=== PATIENT | female | born 1990 | race Caucasian/White ===

== ENCOUNTER → 2019-05-19 15:01 | Outpatient (CLI) | payer OTHER, MEDICAID, SELFPAY | DX: Z23 Encounter for immunization (principal) | CPT/HCPCS: 90471; 90686 ==

== ENCOUNTER 2019-12-12 22:46 | Emergency (ER) | payer OTHER, SELFPAY ==
--- NOTE | 2019-12-12 22:54 | DI.RAD.S_ITS ---
PROCEDURE: XR WRIST LT MIN 3V INDICATIONS: pain, unable to bend TECHNIQUE: 4 views of the wrist were acquired. COMPARISON: None. FINDINGS: Bones: No fractures or dislocations. No suspicious bony lesions. Scaphoid view: Scaphoid appears intact. Scapholunate interval is maintained. Soft tissues: No suspicious soft tissue calcifications. IMPRESSION: Left wrist without acute radiographic abnormalities. If there is persistent clinical concern for occult fracture given adequate mechanism of injury, consider repeat imaging in 10-14 days. Findings are concordant with emergency physician's preliminary interpretation. Dictated by: Raphael Fierro M.D. on 12/13/2019 at 7:34 Approved by: Raphael Fierro M.D. on 12/13/2019 at 7:36
[2019-12-12 22:55] VITALS: BP 148/82; PULSE 91; RESP 15; TEMP 36.4; O2SAT 100; BMI 40.3
--- NOTE | 2019-12-12 22:56 | ED.GENADULT ---
HPI - General Adult General Chief complaint: Extremity Injury, Upper Stated complaint: L wrist pain worsening while working, can't bend Time Seen by Provider: 12/12/19 22:50 Source: patient Mode of arrival: Ambulatory Limitations: no limitations History of Present Illness HPI narrative: 29-year-old female. Right-hand dominant here for evaluation of left wrist pain. 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 She states that today she was pulling some trash while she was at work and had a fairly sudden onset of left-sided wrist pain. Did happened just prior to arrival. Is on the back of her wrist. Is a sharp sensation radiating down to her wrist. Has not done anything for the symptoms prior to arrival. No prior injury. No pain in the elbow. No plain on the palmar side of the wrist. Related Data Allergies Allergy/AdvReac Type Severity Reaction Status Date / Time SULFA Allergy Unknown RASH Uncoded 12/01/17 12:22 Review of Systems Constitutional Constitutional: Denies fever(s) Musculoskeletal Musculoskeletal: Reports tingling (Down into fingers) Comments: Left wrist pain Integumentary/Breasts Skin/Breast: Denies lesions and Denies rash Neurologic Neurologic: Reports tingling (Down into fingers) Hematologic/Lymphatic Hematologic/Lymphatic: Denies easy bleeding and Denies easy bruising Patient History Medical History Healthy adult (Acute) Social History lives independently: Yes Smoking Status: Never smoker Exam Initial Vital Signs Initial Vital Signs: Vital Signs Temperature 97.6 F 12/12/19 22:55 Pulse Rate 91 H 12/12/19 22:55 Respiratory Rate 15 12/12/19 22:55 Blood Pressure 148/82 H 12/12/19 22:55 Pulse Oximetry 100 12/12/19 22:55 Const General: cooperative, healthy appearing and comfortable Cardio Pulses: radial pulses present on the left Skin Lesions: no lesions Rashes: no rashes Neuro General: alert and awake Cognition: normal cognition Speech: speech normal Sensory Exam: no sensory deficits noted Extrem Other: Tenderness to palpation on the dorsum of the left wrist. No volar tenderness. No snuffbox tenderness. Difficulty with extending the wrist. Left elbow unremarkable. Can pronate and supinate without problems. Psych Appearance: grossly normal and well kempt Procedures Orthopedic Splinting/Casting Injury #1: Side: left Upper Extremity Injury Location: wrist Upper Extremity Immobilizer: wrist splint Post splinting neuro exam: no change Post splinting vascular exam: no change Placed by: Nursing Course Orders Ordered: ED Orders 12/12/19 22:54 XR wrist LT min 3V Stat Vital Signs Vital signs: Vital Signs - 8 hr 12/12/19 22:55 Temperature 97.6 F Pulse Rate 91 H Respiratory Rate 15 Blood Pressure 148/82 H Pulse Oximetry 100 Medical Decision Making Imaging Data Extremity x-ray #1: Attestation: I personally reviewed and interpreted this imaging study as follows: My Impression: No fractures or dislocations MDM Narrative Medical decision making narrative: Neurovascular intact, no fractures or dislocations on x-rays. Feel this is most likely musculoskeletal or ligamentous. Placed in a removable wrist splint for comfort. Can use Tylenol and/or ibuprofen. Was given return precautions. Discharge Plan Departure Patient Disposition: Home Clinical Impression: Sprain and strain of wrist Instructions: DI for Wrist Sprain, How To Perform RICE (Rest, Ice, Compress, Elevate) Activity Restrictions/Additional Instructions: You can use the wrist splint as needed for your comfort. You can take it off to shower. He can also use Tylenol and/or ibuprofen for any discomfort. Also recommend that you ice your wrist. Contact your primary provider for follow-up
== END 2019-12-12 23:30 | disposition home or self-care (01) ==
PROVIDERS: Emergency Provider Emergency Medicine
DX: S63.502A Unspecified sprain of left wrist, initial encounter (principal); S66.912A Strain of unspecified muscle, fascia and tendon at wrist and hand level, left hand, initial encounter; Y99.0 Civilian activity done for income or pay
CPT/HCPCS: 73110; 99283

== ENCOUNTER → 2020-06-18 | Outpatient (CLI) | payer OTHER, SELFPAY | PROVIDERS: Referring Provider Internal Medicine; Visit Provider Internal Medicine | DX: Z23 Encounter for immunization (principal) | CPT/HCPCS: 90471; 90686 ==

== ENCOUNTER 2021-06-30 14:00 | Emergency (ER) | payer OTHER, SELFPAY ==
[2021-06-30] VITALS (8 sets, daily range): BP systolic 117–128; BP diastolic 57–68; PULSE 89–114; RESP 12–18; TEMP 36.9; O2SAT 96–100; BMI 47.1
[2021-06-30 14:33] LABS: Add Manual Diff / Slide Review NO; Basophils Absolute Auto 100 /uL (0-100); Basophils Percent Auto 0.8 % (0-2); Eosinophils Absolute Auto 100 /uL (0-450); Eosinophils Percent Auto 1.4 % (2-4); Hematocrit 39.4 % (36-46); Hemoglobin 12.7 g/dL (12.0-16.0); Lymphocytes Absolute Auto 1600 /uL (1100-4500); Lymphocytes Percent Auto 21.6 % (25-40); Mean Corpuscular HGB Conc 32.3 % (30-36); Mean Corpuscular Hemoglobin 25.1 PG (26-34); Mean Corpuscular Volume 77.7 fL (80-100); Monocytes Absolute Auto 500 /uL (0-900); Monocytes Percent Auto 7.1 % (3-14); Neutrophils Absolute Auto 5100 /uL (1500-7000); Neutrophils Percent Auto 69.1 % (50-75); Platelet Count 310 X10^3/uL (150-400); Red Blood Cell Count 5.08 X10^6/uL (4.0-5.2); Red Cell Distribution Width 15.8 % (11.6-14.8); White Blood Cell Count 7.3 X10^3/uL (4.5-11.0)
[2021-06-30] MEDS: SODIUM CHLORIDE 0.9% 1,000 ML 1000 ML IV (14:37)
[2021-06-30 14:46] LABS: Alanine Aminotransferase 17 IU/L (<35); Albumin 4.4 g/dL (3.5-5.0); Albumin Globulin Ratio 1.6 (1.0-2.8); Alkaline Phosphatase 65 U/L (38-126); Aspartate Aminotransferase 20 IU/L (14-36); BUN Creatinine Ratio 15.5 (6-22); Bilirubin Total 0.4 mg/dL (0.2-1.3); Blood Urea Nitrogen 11 mg/dL (7-17); Calcium 9.1 mg/dL (8.4-10.2); Carbon Dioxide 29 mmol/L (22-32); Chloride 104 mmol/L (98-107); Estimated Glomerular Filt Rate > 60.0 mL/min (>60); Globulin 2.8 g/dL (1.7-4.1); Glucose 97 mg/dL (70-100); HEMOLYSIS < 15 (0-50); Potassium 3.8 mmol/L (3.4-5.1); Sodium 141 mmol/L (137-145); Total Protein 7.2 g/dL (6.3-8.2)
[2021-06-30] MEDS: MECLIZINE HCL 12.5 MG TABLET 50 MG PO (15:06)
--- NOTE | 2021-06-30 15:23 | ED_ITS ---
HPI - Dizziness General Chief Complaint: Dizziness Stated Complaint: Dizzy/Disoriented Time Seen by Provider: 06/30/21 14:06 Source: patient Mode of arrival: Ambulatory History of Present Illness HPI Narrative: The patient has experienced dizziness to her 3 days. She has no ear discomfort, no sinus pressure, no visual changes. She denies sore throat. She has no recent infections. She has no chronic sinus issues. She is not experiencing nausea with the dizziness. She has no palpitations, no current cardiovascular complaints. She is not vomiting. She has no abdominal discomfort. She denies dysuria. Her LMP was approximately 1 month ago, she and her are trying to become . She feels is unlikely at t his time. Related Data Previous Rx's Medication Instructions Recorded meclizine 25 mg tablet 25 mg PO QID PRN #20 tab 06/30/21 Allergies Allergy/AdvReac Type Severity Reaction Status Date / Time Sulfa (Sulfonamide Allergy Mild Rash Verified 06/30/21 14:24 Antibiotics) Review of Systems Constitutional Constitutional: Denies chills, Denies fatigue, Denies fever(s) and Denies headache(s) Eyes Eyes: Denies change in vision ENT Ears, Nose, Mouth, and Throat: Denies vertigo, Reports dizziness, Denies otalgia, Denies headache(s), Denies nasal congestion and Denies sore throat Cardiovascular Cardiovascular: Denies chest pain, Denies syncope, Denies rapid heart rate and Denies dyspnea on exertion Respiratory Respiratory: Denies cough and Denies dyspnea on exertion Gastrointestinal Gastrointestinal: Denies abdominal pain, Denies constipation and Reports nausea Genitourinary Genitourinary: Denies dysuria Musculoskeletal Musculoskeletal: Denies back pain and Denies myalgias Integumentary/Breasts Skin/Breast: Denies lesions and Denies rash Neurologic Neurologic: Denies confusion, Denies vertigo, Reports dizziness, Denies syncope and Denies headache(s) Psychiatric Psychiatric: Denies confusion Endocrine Endocrine: Denies fatigue Patient History Medical History (Updated 06/30/21 @ 16:47 by Steve Fields MD) Healthy adult Healthy adult Surgical History (Updated 06/30/21 @ 16:43 by Steve Fields MD) No significant past surgical history Social History lives independently: Yes Smoking Status: Never smoker Smoking Status: Never smoker alcohol intake frequency: other Substance Use Type: does not use Exam Initial Vital Signs Initial Vital Signs: Vital Signs Pulse Oximetry 97 06/30/21 14:12 Const General: cooperative, healthy appearing and comfortable [facility] Head: normocephalic and atraumatic Ears: TM's normal bilaterally Nose: nares normal Face and sinus: sinuses nontender Mouth: oral mucosae normal Throat: posterior oropharynx normal Eyes General: appearance normal, both eyes and all related structures Pupils: PERRL EOM: EOM intact bilaterally and No nystagmus Neck Neck: No tender Resp Auscultation: clear to auscultation bilaterally Cardio Rate: regular rate Rhythm: regular rhythm Heart Sounds: S1 normal, S2 normal and no murmurs GI Inspection: non-distended and obesity Palpation: soft and No mass Auscultation: normal bowel sounds Back/Spine/Pelvis Back: normal to inspection and No CVA tenderness Skin General: no rashes or lesions noted Neuro General: patient alert, patient awake and patient oriented x3 Cranial Nerves: No nystagmus Other: Hallpike testing was not done due to dizziness/increased symptoms with just mild head motion. Course Course Course Narrative: EKG and lab evaluation is normal. She is improved with meclizine, but not asymptomatic. She likely has a bronchitis. She was discharged home on meclizine. Orders Ordered: ED Orders 06/30/21 14:10 EKG-12 Lead Stat 06/30/21 14:22 Complete Blood Count AUTO DIFF Stat Comprehensive Metabolic Panel Stat Discontinued Medications Sodium Chloride (Normal Saline 0.9%) 1,000 mls @ 1,000 mls/hr IV BOLUS ONE Stop: 06/30/21 15:31 Last Infusion: 06/30/21 15:36 Dose: 0 mls/hr Documented by: Admin: 06/30/21 14:37 Dose: 1,000 mls/hr Documented by: GINNA Meclizine HCl (Meclizine Hcl 12.5 Mg Tablet) 50 mg PO NOW ONE Stop: 06/30/21 14:46 Last Admin: 06/30/21 15:06 Dose: 50 mg Documented by: ALEKSEY Vital Signs Vital signs: Vital Signs - 8 hr 06/30/21 14:12 06/30/21 14:13 11/08/21 14:30 Temperature 98.5 F Pulse Rate 114 H 103 H Respiratory Rate 17 17 Blood Pressure 128/58 L 117/57 L Pulse Oximetry 97 99 97 06/30/21 15:00 06/30/21 15:30 Temperature Pulse Rate 101 H 91 H Respiratory Rate 18 17 Blood Pressure 119/58 L Pulse Oximetry 98 100 MDM - Dizziness Lab Data Result diagrams: 06/30/21 14:22 06/30/21 14:22 Labs: Lab Results 06/30/21 06/30/21 Range/Units 14:22 14:22 WBC 7.3 (4.5-11.0) X10^3/uL RBC 5.08 (4.0-5.2) X10^6/uL Hgb 12.7 (12.0-16.0) g/dL Hct 39.4 (36-46) % MCV 77.7 L (80-100) fL MCH 25.1 L (26-34) PG MCHC 32.3 (30-36) % RDW 15.8 H (11.6-14.8) % Plt Count 310 (150-400) X10^3/uL Neut % (Auto) 69.1 (50-75) % Lymph % (Auto) 21.6 L (25-40) % [place] % (Auto) 7.1 (3-14) % Eos % (Auto) 1.4 L (2-4) % Baso % (Auto) 0.8 (0-2) % Neut # (Auto) 5100 (1012-9465) /uL Lymph # (Auto) 1600 (9872-8851) /uL [place] # (Auto) 500 (0-900) /uL Eos # (Auto) 100 (0-450) /uL Baso # (Auto) 100 (0-100) /uL Sodium 141 (137-145) mmol/L Potassium 3.8 (3.4-5.1) mmol/L Chloride 104 (98-107) mmol/L Carbon Dioxide 29 (22-32) mmol/L BUN 11 (7-17) mg/dL Creatinine 0.71 (0.52-1.04) mg/dL Estimated GFR > 60.0 (>60) mL/min BUN/Creatinine Ratio 15.5 (6-22) Glucose 97 (70-100) mg/dL Calcium 9.1 (8.4-10.2) mg/dL Total Bilirubin 0.4 (0.2-1.3) mg/dL AST 20 (14-36) IU/L ALT 17 (<35) IU/L Alkaline Phosphatase 65 (38-126) U/L Total Protein 7.2 (6.3-8.2) g/dL Albumin 4.4 (3.5-5.0) g/dL Globulin 2.8 (1.7-4.1) g/dL Albumin/Globulin Ratio 1.6 (1.0-2.8) Point of Care Testing Test Results Negative Urine Dip Bedside Urine Glucose Negative Bedside Urine Bilirubin - Negative Bedside Urine Ketone - Negative Urine Specific [place] 1.020 Bedside Urine Occult Blood - Negative Bedside Urine pH 6.5 Bedside Urine Protein - Negative Bedside Urine Urobilinogen - Negative Bedside Urine Nitrite - Negative Bedside Urine Leukocytes - Negative Esterase Discharge Plan Departure Patient Disposition: Home Clinical Impression: Dizziness Instructions: DI for Dizziness-Nonvertigo Activity Restrictions/Additional Instructions: Meclizine every 6 hours as needed for dizziness. No work for 2 days, rest at home. Be sure you are drinking plenty of fluids. If not improved follow-up with your doctor or return here. Prescriptions: New meclizine 25 mg tablet 25 mg PO QID PRN (Reason: dizziness) Qty: 20 RF: 0 Stand Alone Forms: Work Release Note
== END 2021-06-30 16:55 | disposition home or self-care (01) ==
PROVIDERS: Emergency Provider Emergency Medicine
DX: R42 Dizziness and giddiness (principal)
CPT/HCPCS: 36415; 80053; 81003; 81025; 85025; 93005; 93010; 96360; 99284

== ENCOUNTER → 2024-03-20 09:34 | Outpatient (CLI) | payer OTHER, SELFPAY ==
[2024-03-20 10:51] LABS: Add Manual Diff / Slide Review NO; Basophils Absolute Auto 0 /uL (0-100); Basophils Percent Auto 0.7 % (0-2); Eosinophils Absolute Auto 100 /uL (0-450); Eosinophils Percent Auto 2.1 % (2-4); Hematocrit 34.5 % (36-46); Hemoglobin 10.3 g/dL (12.0-16.0); Lymphocytes Absolute Auto 1800 /uL (1100-4500); Lymphocytes Percent Auto 26.6 % (25-40); Mean Corpuscular HGB Conc 29.8 % (30-36); Mean Corpuscular Hemoglobin 19.1 PG (26-34); Mean Corpuscular Volume 64.2 fL (80-100); Monocytes Absolute Auto 500 /uL (0-900); Monocytes Percent Auto 7.4 % (3-14); Neutrophils Absolute Auto 4300 /uL (1500-7000); Neutrophils Percent Auto 63.2 % (50-75); Platelet Count 359 X10^3/uL (150-400); Red Blood Cell Count 5.36 X10^6/uL (4.0-5.2); Red Cell Distribution Width 19.8 % (11.6-14.8); White Blood Cell Count 6.8 X10^3/uL (4.5-11.0)
[2024-03-20 10:58] LABS: Hemoglobin A1C% w Est Avg Glu 6.1 % (4.0-6.0)
[2024-03-20 11:07] LABS: Alanine Aminotransferase 17 IU/L (<35); Albumin 3.9 g/dL (3.5-5.0); Albumin Globulin Ratio 1.7 (1.0-2.8); Alkaline Phosphatase 78 U/L (38-126); Aspartate Aminotransferase 17 IU/L (14-36); BUN Creatinine Ratio 17.7 (6-22); Bilirubin Total 0.5 mg/dL (0.2-1.3); Blood Urea Nitrogen 11 mg/dL (7-17); Calcium 8.6 mg/dL (8.4-10.2); Carbon Dioxide 25 mmol/L (22-32); Chloride 108 mmol/L (98-107); Cholesterol 165 mg/dL (140-199); Estimated Glomerular Filt Rate > 60 mL/min (>60); Globulin 2.3 g/dL (1.7-4.1); Glucose 106 mg/dL (70-100); HDL Cholesterol 46 mg/dL (40-60); HEMOLYSIS < 15 (0-50); LDL Cholesterol Calculated 94 mg/dL (<100); Potassium 4.6 mmol/L (3.4-5.1); Sodium 140 mmol/L (137-145); Total Protein 6.2 g/dL (6.3-8.2); Triglycerides 124 mg/dL (35-150)
[2024-03-20 11:21] LABS: Follicle Stimulating Hormone 5.52 mIU/mL; Luteinizing Hormone 10.1 mIU/mL; Prolactin 15.2 ng/mL (3.0-18.6)
[2024-03-20 11:35] LABS: TSH w/ Reflex to FT4 0.93 uIU/mL (0.47-4.68)
[2024-03-20 11:36] LABS: Anisocytosis 2+; Hypochromasia 1+; Microcytosis 2+
[2024-03-20 20:40] LABS: HEMOLYSIS 36 (0-50); Iron 43 ug/dL (37-170)
[2024-03-20 20:51] LABS: Percent Iron Saturation 11 % (15-50); Total Iron Binding Capacity 396 ug/dL (265-497); Transferrin 308 mg/dL (206-381)
== END ==
PROVIDERS: PCP Family Medicine; Referring Provider Family Medicine; Visit Provider Family Medicine
DX: I89.0 Lymphedema, not elsewhere classified (principal); N93.9 Abnormal uterine and vaginal bleeding, unspecified; D64.9 Anemia, unspecified
CPT/HCPCS: 36415; 80053; 80061; 83001; 83002; 83036; 83540; 83550; 84146; 84443; 85025

== ENCOUNTER 2024-04-07 06:29 | Day surgery (SDC) | payer OTHER, SELFPAY ==
[2024-04-03 14:26] VITALS: BMI 57.7
[2024-04-07] VITALS (8 sets, daily range): BP systolic 126–149; BP diastolic 80–97; PULSE 90–104; RESP 11–20; TEMP 36.4–36.9; O2SAT 94–97; BMI 56.2
--- NOTE | 2024-04-07 | PATH_ITS ---
[facility] Accession Number: [id number] No. of containers..01 Tissue . 01 Material submitted: . endometrium - ENDOMETRIAL CURETTINGS . 01 Diagnosis: ENDOMETRIUM, CURETTINGS: Polypoid fragments of proliferative phase endometrium, suggestive of polyp, if imaging studies support. Negative for endometrial intraepithelial neoplasia or malignancy. [facility] 04/13/2024 1111 Local . 01 Electronically signed: . Arik Juarez MD, Pathologist NPI- [id number] . 01 Gross description: . Received in formalin, labeled with two patient identifiers and endometrial curettings, are two torres to dark brown soft tissue fragments aggregating to 4.2 x 3.6 x 0.9 cm. Filtered and submitted in cassettes A1-A2. ([id number]) /FRR 04/08/2024 1243 Local . 01 Pathologist provided ICD-10: N93.9 . 01 CPT . 682800 Specimen Comment: A courtesy copy of this report has been sent to [facility] Pathology Performed at: [address] [address], [place], [place] [id number] MD Omid Duval MD Phone: [phone]
[2024-04-07] MEDS: LACTATED RINGERS 1,000 ML 42 ML IV (07:12)
[2024-04-07] MEDS: ACETAMINOPHEN 325 MG TABLET 975 MG PO (07:12)
--- NOTE | 2024-04-07 07:35 | PM.PREOP ---
Pre-operative Note Interval Note History & Physical reviewed/Exam performed by Physician: Yes Changes to H&P: No H&P completed within 30 days and has changed as indicated here:: 03/21/24; pt counseled on and in agreement to proceed with D&C only, no hysteroscopy
--- NOTE | 2024-04-07 08:13 | SUR.OPER ---
Lithotomy on padded OR bed, head on pillow, arms secured on padded arm boards at <90 degrees abduction. Legs secured in padded yellow fins stirrups. BLUE WEDGE UNDER UPPER TORSO
[2024-04-07] MEDS: fentaNYL 100 MCG/2 ML INJ IV (08:30)
--- NOTE | 2024-04-07 08:45 | PM.OP.1 ---
Operative Date/Time/Diagnoses Date of procedure: 04/07/24 Time of procedure: 07:45 Pre-op diagnosis: AUB Post-op diagnosis: same Procedure & Clinicians Procedure: Exam under anesthesia, dilation and curettage Same procedure as scheduled: Yes Indications: AUB Surgeon: Brittany Peace Click Yes if Unassisted: Yes Anesthesia Type: General Operative Notes Findings: normal external female genitalia, noted chronic dependent edema of labia with evidence of lichen simplex chronicus, vulvar candidiasis vagina visually wnl, cervix retracted anteriorly and visualized with significant difficulty nulliparous cervix Closure Type: not applicable Estimated Blood Loss (mL): 10 Procedure in detail: Pt was taken to the operating room, transferred to OR table and anesthesia was induced with placement of ETT.? Pt had her legs placed in Diomedes stirrups and an exam under anesthesia was performed. The patient was prepped and draped in a sterile fashion.? A time out was performed. ?The bladder was emptied via straight catheter in sterile fashion.? A sterile speculum was inserted into the vagina.? The cervix was visualized and grasped anteriorly using a single tooth tenaculum.? The uterus sounded to 10cm and the cervical os was serially dilated using Funes dilators up to 17f.? The uterus was sharply curetted until a gritty texture was noted throughout, endometrial currettings passed off the field for permanent study.? The tenaculum was removed and hemostasis was noted at insertion sites.? The speculum was removed and hemostasis was again noted to be excellent.? The patient then had her legs taken out of stirrups.? The patient tolerated the procedure well and without difficulty.? The patient was awakened from anesthesia and taken to PACU in stable condition. Complications: none Post-operative Condition: stable Disposition: PACU Plan for aftercare: dc to home with routine postoperative follow-up
[2024-04-07] MEDS: OXYCODONE IR 5 MG TABLET PO (08:50)
--- NOTE | 2024-04-07 09:09 | SUR.PHASEII ---
received report from PACU and assumed care of pt. s/o at bedside. Awaits discharge order from Dr Peace. Will see pt after she returns from clinic
[2024-04-07] MEDS: ONDANSETRON 4 MG/2 ML INJ IV (09:29)
--- NOTE | 2024-04-07 09:38 | SUR.PHASEII ---
cont's to await Dr Peace's discharge order
== END 2024-04-07 10:02 | disposition home or self-care (01) ==
PROVIDERS: PCP Family Medicine; Referring Provider Obstetrics & Gynecology; Visit Provider Obstetrics & Gynecology
PROC: 0UDB8ZZ Extraction of Endometrium, Via Natural or Artificial Opening Endoscopic (ICD-10-PCS; CPT 58558; principal; 2024-04-07 07:45)
DX: N93.9 Abnormal uterine and vaginal bleeding, unspecified (principal); L28.0 Lichen simplex chronicus; B37.31 Acute candidiasis of vulva and vagina
CPT/HCPCS: 58120; 81025; J0330; J2405; J2704; J3010

== ENCOUNTER → 2024-09-03 11:16 | Outpatient (CLI) | payer OTHER, SELFPAY ==
[2024-09-03 12:12] LABS: Influenza A - CEPHEID Flu A NEGATIVE (NEGATIVE); Influenza B - CEPHEID Flu B NEGATIVE (NEGATIVE); Respiratory Syncytial Virus Negative (Negative)
[2024-09-03 12:13] LABS: COVID-19 CEPHEID 4-PLEX PCR Negative (Negative)
== END ==
PROVIDERS: PCP Family Medicine; Visit Provider Registered Nurse
DX: R05.9 Cough, unspecified (principal)
CPT/HCPCS: 0241U

== ENCOUNTER → 2024-09-03 11:43 | Outpatient (CLI) | payer OTHER, SELFPAY ==
--- NOTE | 2024-09-03 11:45 | DI.RAD.S_ITS ---
PROCEDURE: XR CHEST 2V INDICATIONS: shortness of breath TECHNIQUE: 2 views of the chest were acquired. COMPARISON: None. FINDINGS: Surgical changes and devices: None. Lungs and pleura: Lungs are clear. No pleural effusions or pneumothorax. Mediastinum: Mediastinal contours are normal. Heart size is normal. Bones and chest wall: No suspicious bony abnormalities. Soft tissues appear unremarkable. IMPRESSION: No acute pulmonary process. Dictated by: Eileen Orlando M.D. on 09/03/2024 at 12:34 Approved by: Eileen Orlando M.D. on 09/03/2024 at 12:34
== END ==
PROVIDERS: PCP Family Medicine; Referring Provider Registered Nurse; Visit Provider Registered Nurse
DX: R06.02 Shortness of breath (principal); R05.9 Cough, unspecified
CPT/HCPCS: 0241U; 71046

== ENCOUNTER 2024-09-22 14:23 | Emergency (ER) | payer OTHER, SELFPAY ==
[2024-09-22] VITALS (16 sets, daily range): BP systolic 123–156; BP diastolic 58–90; PULSE 90–114; RESP 16–24; TEMP 36.4–36.8; O2SAT 97–100; BMI 56.9
--- NOTE | 2024-09-22 14:56 | ED.BACK ---
HPI - Back Pain/Injury <Amie Drake PA-C - Last Filed: 09/22/24 20:09> General Chief Complaint: Back Pain/Injury Stated Complaint: Px in RT side by waist Time Seen by Provider: 09/22/24 14:56 History of Present Illness HPI Narrative: Ms. Andujar is a pleasant 34 year old female with a past medical history of cholecystectomy, lymphedema, and obesity who presents to the emergency department for right-sided rib/flank pain x1 week. Patient states 3 weeks ago she had upper respiratory symptoms and an aggressive cough for about 2 weeks. She noticed that after the cough got better she started developing pain on her right side that is worse at night when she is lying on her left side. Patient is also exacerbated by bending over. She assumed pain was related to muscle strain however it has not gotten any better of the last week which prompted her ED arrival. She denies fevers, chills, chest pain, shortness of breath, lower extremity pain or swelling, history of venous thromboembolism, hormone use, hemoptysis, abdominal pain, nausea, vomiting, diarrhea, constipation, dysuria, hematuria. She does have some noticeable PERSON. Related Data Home Medications Medication Instructions Recorded Confirmed No Known Home Medications 03/21/24 09/03/24 Allergies Allergy/AdvReac Type Severity Reaction Status Date / Time Sulfa (Sulfonamide Allergy Mild Rash Verified 09/03/24 11:15 Antibiotics) Review of Systems <Amie Drake PA-C - Last Filed: 09/22/24 20:09> Review of Systems ROS Unobtainable: All systems reviewed & are unremarkable except as noted in HPI and below Patient History <Amie Drake PA-C - Last Filed: 09/22/24 20:09> Medical History Body mass index [BMI] 50.0-59.9, adult Wears glasses Decreased hearing Irregular menstrual cycle (~2008) Heavy menstrual period (~2008) Healthy adult Healthy adult Surgical History Anesthesia History of cholecystectomy (~05/07/21) No significant past surgical history Family History Father Cancer Mother Cancer Social History lives independently: Yes Smoking Status: Never smoker alcohol intake: current Smoking Status: Never smoker alcohol intake frequency: other Exam <Amie Drake PA-C - Last Filed: 09/22/24 20:09> Narrative Exam Narrative: GENERAL: 34 year old patient appears stated age. Obese patient, in no acute distress. HEAD: Atraumatic. Normocephalic. NECK: Trachea midline. Cervical ROM intact. CARDIOVASCULAR: Increased rate and regular rhythm. RESPIRATORY: ?Nonlabored respirations. ?Speaking in clear, full sentences. ?Clear to auscultation. Breath sounds equal bilaterally. No wheezes, rales, or rhonchi. ? GASTROINTESTINAL: Tenderness to palpation of the right lateral aspect of the abdomen/lower ribcage. This pain is exacerbated by bending forward. No tenderness to palpation on the front of the abdomen, no rebound or guarding, no CVA tenderness or posterior back tenderness. EXTREMITIES: Bilateral lower extremity pitting edema, no calf tenderness or erythema. NEURO: AOx3. ?Clear speech. ?Moves all 4 extremities appropriately. SKIN: No rash or erythema of visible areas. Pale. Initial Vital Signs Initial Vital Signs: Vital Signs Temperature 97.6 F 09/22/24 14:36 Pulse Rate 114 H 09/22/24 14:36 Respiratory Rate 16 09/22/24 14:36 Blood Pressure 156/79 H 09/22/24 14:36 Pulse Oximetry 99 09/22/24 14:36 Oxygen Delivery Method Room Air 09/22/24 14:36 <Hanna Galvin MD - Last Filed: 09/23/24 01:47> Initial Vital Signs Initial Vital Signs: Vital Signs Temperature 97.6 F 09/22/24 14:36 Pulse Rate 114 H 09/22/24 14:36 Respiratory Rate 16 09/22/24 14:36 Blood Pressure 156/79 H 09/22/24 14:36 Pulse Oximetry 99 09/22/24 14:36 Oxygen Delivery Method Room Air 09/22/24 14:36 Course <Amie Drake PA-C - Last Filed: 09/22/24 20:09> Orders Ordered: ED Orders 09/22/24 17:29 CT abdomen pelvis w con Stat 09/22/24 18:14 Ferritin Stat Iron Profile (w/ % Saturation) Stat Packed Cells Stat Type and Screen Stat Discontinued Medications Sodium Chloride (Normal Saline 0.9%) 1,000 mls @ 500 mls/hr IV BOLUS ONE Stop: 09/22/24 19:28 Last Admin: 09/22/24 18:19 Dose: Not Given Documented By: RB Vital Signs Vital signs: Vital Signs - 8 hr 09/22/24 20:24 09/22/24 20:24 09/22/24 20:26 Temperature Pulse Rate 110 H 105 H Respiratory Rate 24 Blood Pressure 143/90 H Pulse Oximetry 99 100 09/22/24 20:26 09/22/24 20:30 09/22/24 20:30 Temperature Pulse Rate 104 H Respiratory Rate 23 Blood Pressure 146/67 H 143/68 H Pulse Oximetry 100 09/22/24 20:47 09/22/24 20:48 09/22/24 20:48 Temperature 98.3 F Pulse Rate 100 H 98 H Respiratory Rate 22 23 Blood Pressure 129/60 129/60 Pulse Oximetry 100 09/22/24 21:00 09/22/24 21:00 09/22/24 21:07 Temperature 98.3 F Pulse Rate 99 H 96 H Respiratory Rate 22 20 Blood Pressure 123/60 132/60 Pulse Oximetry 99 09/22/24 21:12 09/22/24 21:12 09/22/24 21:30 Temperature Pulse Rate 94 H 90 Respiratory Rate 22 22 Blood Pressure 132/60 Pulse Oximetry 100 100 09/22/24 21:31 09/22/24 21:31 09/22/24 22:00 Temperature Pulse Rate 92 H 96 H Respiratory Rate 24 22 Blood Pressure 127/58 L Pulse Oximetry 100 99 09/22/24 22:00 09/22/24 22:29 09/22/24 22:30 Temperature Pulse Rate 93 H Respiratory Rate 20 Blood Pressure 136/78 131/70 Pulse Oximetry 100 09/22/24 22:31 09/22/24 23:00 09/22/24 23:00 Temperature 98.1 F Pulse Rate 94 H 91 H 92 H Respiratory Rate 22 19 19 Blood Pressure 133/65 Pulse Oximetry 100 97 09/22/24 23:00 Temperature Pulse Rate Respiratory Rate Blood Pressure 133/65 Pulse Oximetry <Hanna Galvin MD - Last Filed: 02/01/25 01:47> Orders Ordered: ED Orders 09/22/24 17:29 CT abdomen pelvis w con Stat 09/22/24 18:14 Ferritin Stat Iron Profile (w/ % Saturation) Stat Packed Cells Stat Type and Screen Stat Discontinued Medications Sodium Chloride (Normal Saline 0.9%) 1,000 mls @ 500 mls/hr IV BOLUS ONE Stop: 09/22/24 19:28 Last Admin: 09/22/24 18:19 Dose: Not Given Documented By: RB Vital Signs Vital signs: Vital Signs - 8 hr 09/22/24 20:24 09/22/24 20:24 09/22/24 20:26 Temperature Pulse Rate 110 H 105 H Respiratory Rate 24 Blood Pressure 143/90 H Pulse Oximetry 99 100 09/22/24 20:26 09/22/24 20:30 09/22/24 20:30 Temperature Pulse Rate 104 H Respiratory Rate 23 Blood Pressure 146/67 H 143/68 H Pulse Oximetry 100 09/22/24 20:47 09/22/24 20:48 09/22/24 20:48 Temperature 98.3 F Pulse Rate 100 H 98 H Respiratory Rate 22 23 Blood Pressure 129/60 129/60 Pulse Oximetry 100 09/22/24 21:00 09/22/24 21:00 09/22/24 21:07 Temperature 98.3 F Pulse Rate 99 H 96 H Respiratory Rate 22 20 Blood Pressure 123/60 132/60 Pulse Oximetry 99 09/22/24 21:12 09/22/24 21:12 09/22/24 21:30 Temperature Pulse Rate 94 H 90 Respiratory Rate 22 22 Blood Pressure 132/60 Pulse Oximetry 100 100 09/22/24 21:31 09/22/24 21:31 09/22/24 22:00 Temperature Pulse Rate 92 H 96 H Respiratory Rate 24 22 Blood Pressure 127/58 L Pulse Oximetry 100 99 09/22/24 22:00 09/22/24 22:29 09/22/24 22:30 Temperature Pulse Rate 93 H Respiratory Rate 20 Blood Pressure 136/78 131/70 Pulse Oximetry 100 09/22/24 22:31 09/22/24 23:00 09/22/24 23:00 Temperature 98.1 F Pulse Rate 94 H 91 H 92 H Respiratory Rate 22 19 19 Blood Pressure 133/65 Pulse Oximetry 100 97 09/22/24 23:00 Temperature Pulse Rate Respiratory Rate Blood Pressure 133/65 Pulse Oximetry MDM - Back Pain/Injury <Amie Drake PA-C - Last Filed: 09/22/24 20:09> Medical Records Attestation: I reviewed the patient's medical records. Lab Data 09/22/24 16:30 09/22/24 16:30 Labs: Lab Results 09/22/24 09/22/24 09/22/24 Range/Units 15:05 16:30 18:14 WBC 8.6 (4.5-11.0) X10^3/uL RBC 4.35 (4.0-5.2) X10^6/uL Hgb 7.3 L (12.0-16.0) g/dL Hct 25.7 L (36-46) % MCV 59.1 L (80-100) fL MCH 16.8 L (26-34) PG MCHC 28.4 L (30-36) % RDW 20.2 H (11.6-14.8) % Plt Count 252 (150-400) X10^3/uL Neut % (Auto) 63.7 (50-75) % Lymph % (Auto) 24.5 L (25-40) % Whitman % (Auto) 7.8 (3-14) % Eos % (Auto) 1.7 L (2-4) % Baso % (Auto) 2.3 H (0-2) % Neut # (Auto) 5500 (2654-8081) /uL Lymph # (Auto) 2100 (2302-3894) /uL Whitman # (Auto) 700 (0-900) /uL Eos # (Auto) 100 (0-450) /uL Baso # (Auto) 200 H (0-100) /uL RBC Morphology See below Polychromasia 1+ H Hypochromasia 1+ H Anisocytosis 3+ H Microcytosis 1+ H Sodium 141 (137-145) mmol/L Potassium 3.9 (3.4-5.1) mmol/L Chloride 107 (98-107) mmol/L Carbon Dioxide 25 (22-32) mmol/L BUN 13 (7-17) mg/dL Creatinine 0.70 (0.52-1.04) mg/dL Estimated GFR > 60 (>60) mL/min BUN/Creatinine Ratio 18.6 (6-22) Glucose 113 H (70-100) mg/dL Calcium 8.7 (8.4-10.2) mg/dL Iron 20 L (37-170) ug/dL TIBC 376 (265-497) ug/dL % Saturation 5 L (15-50) % Transferrin 335 (206-381) mg/dL Ferritin 5 L (6-137) ng/mL Total Bilirubin 0.4 (0.2-1.3) mg/dL AST 24 (14-36) IU/L ALT 22 (<35) IU/L Alkaline Phosphatase 76 (38-126) U/L Total Protein 6.9 (6.3-8.2) g/dL Albumin 4.2 (3.5-5.0) g/dL Globulin 2.7 (1.7-4.1) g/dL Albumin/Globulin Ratio 1.6 (1.0-2.8) Lipase 86 (23-300) U/L Urine RBC None seen (0-5/HPF) Urine WBC 1-5/hpf (0-5/HPF) Ur Squamous Epith Cells 1-5 /hpf (0-5/HPF) Urine Bacteria Moderate (10-30) H (None) Ur Culture Indicated? Cult not indicated Vol Urine Centrifuged 10ml (spun) Blood Type A Positive Antibody Screen Negative Crossmatch See Detail Point of Care Testing Test Results Negative Urine Dip Bedside Urine Glucose Negative Bedside Urine Bilirubin - Negative Bedside Urine Ketone +/- 5 Urine Specific [place] 1.030 Bedside Urine Occult Blood + Bedside Urine pH 6.0 Bedside Urine Protein +/- 15 Bedside Urine Urobilinogen - Negative Bedside Urine Nitrite - Negative Bedside Urine Leukocytes +/- 15 Esterase MDM Narrative Medical decision making narrative: 34 year old female with a past medical history of cholecystectomy, lymphedema, and obesity who presents to the emergency department for right-sided rib/flank pain x1 week. Differential diagnosis includes but is not limited to muscle strain, costochondritis, pneumonia, pyelonephritis, nephrolithiasis, ureterolithiasis, hydronephrosis, etc. On exam the patient is in no acute distress, nontoxic appearing, vital signs appropriate except for elevated heart rate of 114 in triage. 99% on room air. No respiratory distress. Patient has been having pain and tenderness on her right lateral side for the last week. Symptoms were precipitated by 2 weeks of coughing which has since resolved. Her gallbladder has already been removed. Concern for musculoskeletal pain versus abdominal pain given location. We will start with CBC, CMP, lipase, two-view chest x-ray, urinalysis. We will add on additional imaging if needed. Patient declines the need for pain medication at this time. Labs reveal hemoglobin of 7.3 (10.3 on 03/20/24), hematocrit 25.7, MCV 59.1, MCH 16.8, MCHC 28.4, RDW 20.2. After further discussion with the patient about bleeding, history of anemia, she does report that she has extremely irregular and heavy menstrual periods that last for numerous weeks at a time. Her last menstrual period ended about a week ago and she is not currently bleeding, denies hematuria, hematemesis, melena, hematochezia. States that her OBGYN has prescribed her OCPs for her heavy periods however she has not yet taken these and she would like hysterectomy instead. Anemia likely explains patient's elevated heart rate, some dyspnea on exertion. Consulted attending ED physician. After shared decision-making with the patient, we will transfuse 1 unit RBCs for symptomatic anemia. CT abdomen pelvis was also ordered to evaluate for further explanation of right-sided abdominal pain. CT abdomen pelvis reveals mild hepatomegaly, mild diffuse hepatic steatosis, mild splenomegaly. Chest x-ray reveals small area of focal atelectasis in the left lung, no airspace consolidation. Discussed all results with patient. At this time suspect right-sided abdominal/flank pain is musculoskeletal in nature and I did recommend ibuprofen, Tylenol, rest. Advised to follow up with PCP within the next week and ED return precautions were discussed. Due to shift change, pt will be moved to the main ED. Blood transfusion not started at my shift end. Plan is for discharge after 1 unit transfusion. Discussed with nighttime ED physician. Pt is agreeable to transfer of care. I did have an extensive discussion with the patient about the importance of following up with her OBGYN in regards to heavy menstrual bleeding and anemia. Discussed signs and symptoms to return to the emergency department for. <Hanna Galvin MD - Last Filed: 09/23/24 01:47> Lab Data Labs: Lab Results 09/22/24 09/22/24 09/22/24 Range/Units 15:05 16:30 18:14 WBC 8.6 (4.5-11.0) X10^3/uL RBC 4.35 (4.0-5.2) X10^6/uL Hgb 7.3 L (12.0-16.0) g/dL Hct 25.7 L (36-46) % MCV 59.1 L (80-100) fL MCH 16.8 L (26-34) PG MCHC 28.4 L (30-36) % RDW 20.2 H (11.6-14.8) % Plt Count 252 (150-400) X10^3/uL Neut % (Auto) 63.7 (50-75) % Lymph % (Auto) 24.5 L (25-40) % Whitman % (Auto) 7.8 (3-14) % Eos % (Auto) 1.7 L (2-4) % Baso % (Auto) 2.3 H (0-2) % Neut # (Auto) 5500 (0567-5447) /uL Lymph # (Auto) 2100 (2375-6277) /uL Whitman # (Auto) 700 (0-900) /uL Eos # (Auto) 100 (0-450) /uL Baso # (Auto) 200 H (0-100) /uL RBC Morphology See below Polychromasia 1+ H Hypochromasia 1+ H Anisocytosis 3+ H Microcytosis 1+ H Sodium 141 (137-145) mmol/L Potassium 3.9 (3.4-5.1) mmol/L Chloride 107 (98-107) mmol/L Carbon Dioxide 25 (22-32) mmol/L BUN 13 (7-17) mg/dL Creatinine 0.70 (0.52-1.04) mg/dL Estimated GFR > 60 (>60) mL/min BUN/Creatinine Ratio 18.6 (6-22) Glucose 113 H (70-100) mg/dL Calcium 8.7 (8.4-10.2) mg/dL Iron 20 L (37-170) ug/dL TIBC 376 (265-497) ug/dL % Saturation 5 L (15-50) % Transferrin 335 (206-381) mg/dL Ferritin 5 L (6-137) ng/mL Total Bilirubin 0.4 (0.2-1.3) mg/dL AST 24 (14-36) IU/L ALT 22 (<35) IU/L Alkaline Phosphatase 76 (38-126) U/L Total Protein 6.9 (6.3-8.2) g/dL Albumin 4.2 (3.5-5.0) g/dL Globulin 2.7 (1.7-4.1) g/dL Albumin/Globulin Ratio 1.6 (1.0-2.8) Lipase 86 (23-300) U/L Urine RBC None seen (0-5/HPF) Urine WBC 1-5/hpf (0-5/HPF) Ur Squamous Epith Cells 1-5 /hpf (0-5/HPF) Urine Bacteria Moderate (10-30) H (None) Ur Culture Indicated? Cult not indicated Vol Urine Centrifuged 10ml (spun) Blood Type A Positive Antibody Screen Negative Crossmatch See Detail Point of Care Testing Test Results Negative Urine Dip Bedside Urine Glucose Negative Bedside Urine Bilirubin - Negative Bedside Urine Ketone +/- 5 Urine Specific [place] 1.030 Bedside Urine Occult Blood + Bedside Urine pH 6.0 Bedside Urine Protein +/- 15 Bedside Urine Urobilinogen - Negative Bedside Urine Nitrite - Negative Bedside Urine Leukocytes +/- 15 Esterase MDM Narrative Medical decision making narrative: 34 year old female with a past medical history of cholecystectomy, lymphedema, and obesity who presents to the emergency department for right-sided rib/flank pain x1 week. Differential diagnosis includes but is not limited to muscle strain, costochondritis, pneumonia, pyelonephritis, nephrolithiasis, ureterolithiasis, hydronephrosis, etc. On exam the patient is in no acute distress, nontoxic appearing, vital signs appropriate except for elevated heart rate of 114 in triage. 99% on room air. No respiratory distress. Patient has been having pain and tenderness on her right lateral side for the last week. Symptoms were precipitated by 2 weeks of coughing which has since resolved. Her gallbladder has already been removed. Concern for musculoskeletal pain versus abdominal pain given location. We will start with CBC, CMP, lipase, two-view chest x-ray, urinalysis. We will add on additional imaging if needed. Patient declines the need for pain medication at this time. Labs reveal hemoglobin of 7.3 (10.3 on 03/20/24), hematocrit 25.7, MCV 59.1, MCH 16.8, MCHC 28.4, RDW 20.2. After further discussion with the patient about bleeding, history of anemia, she does report that she has extremely irregular and heavy menstrual periods that last for numerous weeks at a time. Her last menstrual period ended about a week ago and she is not currently bleeding, denies hematuria, hematemesis, melena, hematochezia. States that her OBGYN has prescribed her OCPs for her heavy periods however she has not yet taken these and she would like hysterectomy instead. Anemia likely explains patient's elevated heart rate, some dyspnea on exertion. Consulted attending ED physician. After shared decision-making with the patient, we will transfuse 1 unit RBCs for symptomatic anemia. CT abdomen pelvis was also ordered to evaluate for further explanation of right-sided abdominal pain. CT abdomen pelvis reveals mild hepatomegaly, mild diffuse hepatic steatosis, mild splenomegaly. Chest x-ray reveals small area of focal atelectasis in the left lung, no airspace consolidation. Discussed all results with patient. At this time suspect right-sided abdominal/flank pain is musculoskeletal in nature and I did recommend ibuprofen, Tylenol, rest. Advised to follow up with PCP within the next week and ED return precautions were discussed. Due to shift change, pt will be moved to the main ED. Blood transfusion not started at my shift end. Plan is for discharge after 1 unit transfusion. Discussed with nighttime ED physician. Pt is agreeable to transfer of care. I did have an extensive discussion with the patient about the importance of following up with her OBGYN in regards to heavy menstrual bleeding and anemia. Discussed signs and symptoms to return to the emergency department for. Dr. Galvin -care of patient is signed to me by YANCI Drake at 0830. Transfusion completed at 11:00 p.m.. Patient reassessed, feels better after receiving transfusion. She was in the process of establishing with an OBGYN and a referral number was provided. ED instructions discussed at bedside. Discharge Plan Departure Patient Disposition: Home Clinical Impression: Symptomatic anemia, Right sided abdominal pain Instructions: DI for Iron Deficiency Anemia-Adult Activity Restrictions/Additional Instructions: Your hemoglobin today was much lower today than your last results from February of 2024. Since you were exhibiting some symptoms you were given a transfusion. Make sure that you follow up with OBGYN to discuss hysterectomy options. If you notice worsening shortness of breath, chest pain, lightheadedness, or any other concerning symptoms please return to the emergency department for repeat evaluation. Prescriptions: No Action No Known Home Medications Referrals: Nadia Brennan MD [Primary Care Provider] - Brittany Peace MD [Physician] - Stand Alone Forms: Patient Portal/API/Survey
--- NOTE | 2024-09-22 15:28 | DI.RAD.S_ITS ---
PROCEDURE: XR CHEST 2V INDICATIONS: R lateral rib pain recent uri TECHNIQUE: 2 views of the chest were acquired. COMPARISON: [facility], CR, XR CHEST 2V, 09/03/2024, 11:46. FINDINGS: Surgical changes and devices: None. Lungs and pleura: Development of a small area of focal atelectasis in the left lateral lung base. No pleural effusions or pneumothorax. Mediastinum: Mediastinal contours are normal. Heart size is normal. Bones and chest wall: No suspicious bony abnormalities. Soft tissues appear unremarkable. IMPRESSION: Small area of focal atelectasis in the left lung. No airspace consolidation. Dictated by: Silvio Casillas M.D. on 09/22/2024 at 19:35 Approved by: Silvio Casillas M.D. on 09/22/2024 at 19:36
[2024-09-22 15:52] LABS: RBC Urine None Seen (0-5/HPF); Squamous Epithelial Cell Urine 1-5 /HPF (0-5/HPF); Urine Volume 10mL (spun); WBC Urine 1-5/HPF (0-5/HPF)
[2024-09-22 15:53] LABS: Bacteria Urine Moderate (10-30); Culture Indicated Urine Cult Not Indicated
[2024-09-22 16:51] LABS: Alanine Aminotransferase 22 IU/L (<35); Albumin 4.2 g/dL (3.5-5.0); Albumin Globulin Ratio 1.6 (1.0-2.8); Alkaline Phosphatase 76 U/L (38-126); Aspartate Aminotransferase 24 IU/L (14-36); BUN Creatinine Ratio 18.6 (6-22); Bilirubin Total 0.4 mg/dL (0.2-1.3); Blood Urea Nitrogen 13 mg/dL (7-17); Calcium 8.7 mg/dL (8.4-10.2); Carbon Dioxide 25 mmol/L (22-32); Chloride 107 mmol/L (98-107); Estimated Glomerular Filt Rate > 60 mL/min (>60); Globulin 2.7 g/dL (1.7-4.1); Glucose 113 mg/dL (70-100); HEMOLYSIS < 15 (0-50); Lipase 86 U/L (23-300); Potassium 3.9 mmol/L (3.4-5.1); Sodium 141 mmol/L (137-145); Total Protein 6.9 g/dL (6.3-8.2)
[2024-09-22 17:05] LABS: Add Manual Diff / Slide Review NO; Basophils Absolute Auto 200 /uL (0-100); Basophils Percent Auto 2.3 % (0-2); Eosinophils Absolute Auto 100 /uL (0-450); Eosinophils Percent Auto 1.7 % (2-4); Hematocrit 25.7 % (36-46); Hemoglobin 7.3 g/dL (12.0-16.0); Lymphocytes Absolute Auto 2100 /uL (1100-4500); Lymphocytes Percent Auto 24.5 % (25-40); Mean Corpuscular HGB Conc 28.4 % (30-36); Mean Corpuscular Hemoglobin 16.8 PG (26-34); Mean Corpuscular Volume 59.1 fL (80-100); Monocytes Absolute Auto 700 /uL (0-900); Monocytes Percent Auto 7.8 % (3-14); Neutrophils Absolute Auto 5500 /uL (1500-7000); Neutrophils Percent Auto 63.7 % (50-75); Red Blood Cell Count 4.35 X10^6/uL (4.0-5.2); Red Cell Distribution Width 20.2 % (11.6-14.8); White Blood Cell Count 8.6 X10^3/uL (4.5-11.0)
[2024-09-22 17:06] LABS: Anisocytosis 3+; Hypochromasia 1+; Microcytosis 1+; Polychromasia 1+
[2024-09-22 17:07] LABS: Platelet Count 252 X10^3/uL (150-400)
--- NOTE | 2024-09-22 17:29 | DI.CT.S_ITS ---
PROCEDURE: CT ABDOMEN PELVIS W CON INDICATIONS: right lateral abd flank pain; hx cholecystectomy; anemic TECHNIQUE: After the administration of intravenous contrast, axial sections acquired from the lung bases to the pubic symphysis. Coronal and sagittal reformats were performed. For radiation dose reduction, the following was used: automated exposure control, adjustment of mA and/or kV according to patient size. COMPARISON: None. FINDINGS: Image quality: Diagnostic. Lower Chest: No significant findings. ABDOMEN: Liver: No solid mass. Mild hepatomegaly. Mild diffuse hepatic steatosis. Gallbladder: Absent Biliary ducts: No biliary dilation. Pancreas: No ductal dilation. Spleen: Mild splenomegaly. Spleen measures 13.6 cm in craniocaudal dimension. Adrenal Glands: No adrenal nodules. Kidneys and Ureters: No hydronephrosis. No solid mass. No complex renal cystic lesion which requires follow up. Stomach and Bowel: Normal colonic caliber, without significant wall thickening. Peritoneum: No abnormal intraperitoneal fluid. No free air. Ventral Wall: No significant ventral hernia. Abdominal Nodes: No retroperitoneal or mesenteric adenopathy by size criteria. Vessels: Aorta and inferior vena cava are normal in size. PELVIS: Pelvic Organs: Unremarkable. Bladder: No bladder wall thickening, accounting for underdistention. Pelvic Nodes: No enlarged lymph nodes. Miscellaneous: No inguinal hernias are seen. Bones: No aggressive osseous abnormality. IMPRESSION: 1. Remote cholecystectomy. 2. Mild hepatomegaly, mild diffuse hepatic steatosis. 3. Mild splenomegaly. Dictated by: Silvio Casillas M.D. on 09/22/2024 at 19:37 Approved by: Silvio Casillas M.D. on 09/22/2024 at 19:40
--- NOTE | 2024-09-22 18:18 | PC.NURSE ---
Provider cancelled fluid ordered as patient will be getting blood instead.
[2024-09-22 18:41] LABS: HEMOLYSIS < 15 (0-50); Iron 20 ug/dL (37-170)
[2024-09-22 18:48] LABS: Transferrin 335 mg/dL (206-381)
[2024-09-22 19:16] LABS: Ferritin 5 ng/mL (6-137)
[2024-09-22 19:54] LABS: Percent Iron Saturation 5 % (15-50); Total Iron Binding Capacity 376 ug/dL (265-497)
== END 2024-09-22 23:48 | disposition home or self-care (01) ==
PROVIDERS: Emergency Provider Physician Assistant; PCP Family Medicine
DX: D64.89 Other specified anemias (principal); R07.81 Pleurodynia; R06.09 Other forms of dyspnea; E66.9 Obesity, unspecified; Z68.43 Body mass index [BMI] 50.0-59.9, adult
CPT/HCPCS: 36415; 36430; 71046; 74177; 80053; 81003; 81015; 81025; 82728; 83540; 83550; 83690; 85025; 86850; 86900; 86901; 87086; 99285; P9016; Q9967

== ENCOUNTER → 2025-05-01 13:22 | Outpatient (CLI) | payer OTHER, SELFPAY ==
[2025-05-01 14:19] LABS: Hemoglobin A1C% w Est Avg Glu 6.4 % (4.0-6.0)
[2025-05-01 14:22] LABS: Add Manual Diff / Slide Review SLIDE REVIEW; HEMOLYSIS < 15 (0-50); Hematocrit 39.8 % (36-46); Hemoglobin 12.0 g/dL (12.0-16.0); Iron 27 ug/dL (37-170); Lymphocytes Absolute Auto 2100 /uL (1100-4500); Mean Corpuscular HGB Conc 30.2 % (30-36); Mean Corpuscular Hemoglobin 19.2 PG (26-34); Mean Corpuscular Volume 63.8 fL (80-100); Platelet Count 444 X10^3/uL (150-400)
[2025-05-01 14:32] LABS: Percent Iron Saturation 6 % (15-50); Total Iron Binding Capacity 460 ug/dL (265-497); Transferrin 409 mg/dL (206-381)
[2025-05-01 14:57] LABS: Ferritin 5 ng/mL (6-137)
[2025-05-01 15:36] LABS: Anisocytosis 1+
[2025-05-01 15:37] LABS: Hypochromasia 1+; Microcytosis 1+
== END ==
PROVIDERS: PCP Family Medicine; Referring Provider Family Medicine; Visit Provider Family Medicine
DX: N92.0 Excessive and frequent menstruation with regular cycle (principal); D50.0 Iron deficiency anemia secondary to blood loss (chronic); R73.03 Prediabetes; N93.9 Abnormal uterine and vaginal bleeding, unspecified; E61.1 Iron deficiency; Z68.43 Body mass index [BMI] 50.0-59.9, adult
CPT/HCPCS: 36415; 82728; 83036; 83540; 83550; 85025

== ENCOUNTER 2025-06-27 13:46 | Emergency (ER) | payer OTHER, SELFPAY ==
[2025-06-27 13:48] VITALS: BP 141/97; PULSE 116; RESP 20; TEMP 36.6; O2SAT 100; BMI 53.1
--- NOTE | 2025-06-27 14:45 | DI.RAD.S_ITS ---
PROCEDURE: XR CHEST 1V
--- NOTE | 2025-06-27 14:45 | ED_ITS ---
HPI - Chest Pain
--- NOTE | 2025-06-27 14:45 | ED.CHESTPAIN ---
HPI - Chest Pain General Chief Complaint: Chest Pain Stated Complaint: Chest pain , SOB x 1 day Time Seen by Provider: 06/27/25 14:18 Source: patient, RN notes reviewed and old records reviewed Mode of arrival: Ambulatory Limitations: no limitations History of Present Illness HPI narrative: 35-year-old female on phentermine and oral contraceptive who presents with a complaint of substernal to slightly left-sided chest discomfort that is started yesterday she notes it is worse with exertion rest does make it better although it has been persistent rest here today. She notes that any kind of mild exertion seems to make it worse. She denies fevers or chills, no cold cough or congestion symptoms. No syncope. No rash or skin changes. She has not had any new diaphoresis. She denies any nausea or vomiting. She has chronic lymphedema in her lower extremities but no new swelling appreciated she does note some shortness of breath with symptoms when she exerts herself. She notes she has been on phentermine since February has not had any dosage changes. She does take an oral contraceptive norethindrone since September. Has a history of cholecystectomy and scraping of her uterine lining. Reports an allergy to sulfa. No tobacco, alcohol or recreational drugs. She has no known cardiac, pulmonary or vascular issues. No known cardiac issues for family. She is unsure of her mom may have had a blood clot in the past. Dr. Stack is her primary care physician. Related Data Home Medications ?Medication ?Instructions ?Recorded ?Confirmed ferrous sulfate 324 mg (65 mg 324 mg PO DAILY 09/28/24 05/07/25 iron) tablet,delayed release norethindrone acetate 5 mg tablet 10 mg PO DAILY 09/28/24 05/07/25 Previous Rx's ?Medication ?Instructions ?Recorded phentermine 37.5 mg tablet 37.5 mg PO DAILY #30 tabs 05/07/25 ondansetron HCl 2 mg/mL 4 mg (2 mL) IV ONCE nausea #2 mL 06/04/25 intravenous solution cephalexin 500 mg capsule 500 mg PO Q8H 5 days #15 caps 06/27/25 Allergies Allergy/AdvReac Type Severity Reaction Status Date / Time Sulfa (Sulfonamide Allergy Mild Rash Verified 06/18/25 16:03 Antibiotics) Review of Systems Review of Systems ROS Unobtainable: All systems reviewed & are unremarkable except as noted in HPI and below Patient History Medical History Body mass index [BMI] 50.0-59.9, adult Wears glasses Decreased hearing Irregular menstrual cycle (~2008) Heavy menstrual period (~2008) Healthy adult Healthy adult Surgical History Anesthesia History of cholecystectomy (~05/07/21) No significant past surgical history Family History Father Cancer Mother Cancer Social History lives independently: Yes Smoking Status: Never smoker alcohol intake: current Smoking Status: Never smoker alcohol intake frequency: other Exam Narrative Exam Narrative: GENERAL: Alert and oriented x three, mild distress HEENT: Head normocephalic, atraumatic, EOMI, pupils reactive, face symmetric, moist mucous membranes NECK: Supple, full range of motion CARDIOVASCULAR: Regular rate and rhythm without murmurs, rubs or gallops. No reproducible chest pain, no warmth erythema or skin changes noted. RESPIRATORY: Breath sounds equal bilaterally, no wheezes rales or rhonchi. No tachypnea or accessory muscle use. Mild edema bilaterally. ABDOMEN: Soft, nontender. Normoactive bowel sounds all 4 quadrants. No guarding or rebound, rigidity, no mass : No CVA tenderness EXTREMITIES: Normal range of motion. Neurovascularly intact NEUROLOGICAL: Cranial nerves II through XII grossly intact. Moving all extremities SKIN: Warm, dry, no petechiae, no rashes or lesions. Initial Vital Signs Initial Vital Signs: Vital Signs Temperature 98 F 06/27/25 13:48 Pulse Rate 116 H 06/27/25 13:48 Respiratory Rate 20 06/27/25 13:48 Blood Pressure 141/97 H 06/27/25 13:48 Pulse Oximetry 100 06/27/25 13:48 Oxygen Delivery Method Room Air 06/27/25 13:48 Scores HEART Score Heart Score history: Slightly Suspicious Heart Score EKG: Normal Heart Score Age: < 45 years old Heart Score risk factors: No known risk factors Heart Score troponin: < or = to normal limit Heart Score Total: 0 PERC Score Age greater than or equal to 50 years: No Heart rate greater than or equal to 100 bpm: Yes Room Air O2 Sat less than 95%: No Unilateral leg swelling: No Recent trauma or surgery: No Hemoptysis: No Prior PE or DVT: No Hormone Use: Yes Total PERC Score: 2 Course Orders Ordered: ED Orders 06/27/25 13:53 EKG-12 Lead Stat 06/27/25 14:45 XR chest 1V Stat Complete Blood Count AUTO DIFF Stat Comprehensive Metabolic Panel Stat D Dimer Stat Lipase Stat Magnesium Stat NT-proBNP (BNP-Adult 18+) Stat Troponin I Stat 06/27/25 15:45 CT angio chest PE protocol Stat 06/27/25 16:45 Trop I [Troponin I] Stat UA Complete [Urinalysis and Microscopic] Stat Urine Culture Stat 06/27/25 17:42 Test Urine Stat Vital Signs Vital signs: Vital Signs - 8 hr 06/27/25 13:48 06/27/25 17:26 06/27/25 17:30 Temperature 98 F Pulse Rate 116 H 95 H 91 H Respiratory Rate 20 37 H 26 H Blood Pressure 141/97 H Pulse Oximetry 100 99 100 Oxygen Delivery Method Room Air 06/27/25 17:40 06/27/25 17:40 Temperature Pulse Rate 94 H Respiratory Rate 23 Blood Pressure 135/74 Pulse Oximetry 100 Oxygen Delivery Method MDM - Chest Pain Lab Data 06/27/25 14:45 06/27/25 14:45 Labs: Lab Results 06/27/25 06/27/25 Range/Units 14:45 16:45 WBC 7.2 (4.5-11.0) X10^3/uL RBC 6.31 H (4.0-5.2) X10^6/uL Hgb 14.5 (12.0-16.0) g/dL Hct 44.9 (36-46) % MCV 71.2 L (80-100) fL MCH 23.1 L (26-34) PG MCHC 32.4 (30-36) % RDW 28.8 H (11.6-14.8) % Plt Count 366 (150-400) X10^3/uL Neut % (Auto) 62.0 (50-75) % Lymph % (Auto) 28.7 (25-40) % [place] % (Auto) 6.7 (3-14) % Eos % (Auto) 1.5 L (2-4) % Baso % (Auto) 1.1 (0-2) % Neut # (Auto) 4500 (5071-7215) /uL Lymph # (Auto) 2100 (3076-7474) /uL [place] # (Auto) 500 (0-900) /uL Eos # (Auto) 100 (0-450) /uL Baso # (Auto) 100 (0-100) /uL RBC Morphology See below Hypochromasia 2+ H Anisocytosis 2+ H Microcytosis 2+ H D-Dimer 256 (<500) ng/ml Sodium 140 (137-145) mmol/L Potassium 4.1 (3.4-5.1) mmol/L Chloride 105 (98-107) mmol/L Carbon Dioxide 24 (22-32) mmol/L BUN 11 (7-17) mg/dL Creatinine 0.73 (0.52-1.04) mg/dL Estimated GFR > 60 (>60) mL/min BUN/Creatinine Ratio 15.1 (6-22) Glucose 118 H (70-99) mg/dL Calcium 9.3 (8.4-10.2) mg/dL Magnesium 2.2 (1.6-2.3) mg/dL Total Bilirubin 0.4 (0.2-1.3) mg/dL AST 34 (14-36) IU/L ALT 44 H (<35) IU/L Alkaline Phosphatase 65 (38-126) U/L Troponin I < 0.012 < 0.012 (0.01-0.034) ng/mL NT-Pro-B Natriuret Pep < 20 (<125) pg/mL Total Protein 8.0 (6.3-8.2) g/dL Albumin 4.7 (3.5-5.0) g/dL Globulin 3.3 (1.7-4.1) g/dL Albumin/Globulin Ratio 1.4 (1.0-2.8) Lipase 83 (23-300) U/L Urine Color Yellow Urine Appearance Clear Urine pH 7.0 (4.5-8.0) Ur Specific [employer] 1.020 (1.000-1.035) Urine Protein Trace H (Negative) Urine Glucose (UA) Negative (Negative) g/dL Urine Ketones Trace H (NEGATIVE) Urine Occult Blood 1+ H (Negative) Urine Nitrate Positive H (Negative) Urine Bilirubin Negative (NEGATIVE) Urine Urobilinogen 0.2 (0.2) E.U./dL Ur Leukocyte Esterase 1+ H (NEGATIVE) Urine RBC 0-1/hpf (0-5/HPF) Urine WBC 0-1/hpf (0-5/HPF) Ur Squamous Epith Cells 5-10 /hpf H (0-5/HPF) Triple Phos Crystals Moderate Urine Bacteria Many (>30) H (None) Ur Culture Indicated? Specimen cultured Vol Urine Centrifuged 10ml (spun) MDM Narrative Medical decision making narrative: Labs show white count 7.2 hemoglobin 14.5, platelets of 366. D-dimer is negative at 256. Chemistries normal electrolytes BUN and creatinine, glucose is 1 chemistries are appropriate, BUN and creatinine are appropriate glucose is 118, ALT is 44, bilirubin AST alk-phos lipase are normal troponins less than 0.012 with a BNP of less than 20. Repeat troponin is less than 0.012 Chest x-ray shows low lung volumes no acute abnormality seen on plain film. CTA chest shows no central PE bilateral distal subsegmental pulmonary artery branches are suboptimally opacified no thoracic aortic aneurysm or dissection no acute cardiopulmonary pathology. EKG shows sinus tachycardia rate of 116, ME 124 QRS of 94 QTC of 455, no acute ST-elevation or depression noted. Urinalysis, trace protein, trace ketones, 1+ blood, positive nitrates positive leukocyte esterase 5-10 squamous, many bacteria. Heart score is 0, PERC is 2. Patient was slightly tachycardic EKG showed sinus tachycardia workup does not show any pulmonary embolism. Patient was on phentermine discussed this could potentially cause symptoms as well so patient is going to stop her phentermine. Discussed return precautions. She does have a UTI we will treat this although unlikely source of her symptoms today. Discharge Plan Departure Patient Disposition: Home Clinical Impression: Chest pain, UTI (urinary tract infection) Instructions: DI for Chest Pain Activity Restrictions/Additional Instructions: Follow up with your physician for recheck. Please call to set up a follow up appointment. I would recommend stopping your phentermine to see if this improves your symptoms. Your urine does show signs consistent with the infection please take oral antibiotics as prescribed. Prescription was sent to [facility]. Please return if you develop fevers, new or worsening chest pain, increasing shortness of breath, any lightheadedness or passing out, coughing up blood any rash or skin changes with blisters or vesicles, new swelling of your extremities or other new or concerning changes. Prescriptions: New cephalexin 500 mg capsule 500 mg PO Q8H 5 Days Qty: 15 0RF No Action ferrous sulfate 324 mg (65 mg iron) tablet,delayed release (DR/EC) 324 mg PO DAILY norethindrone acetate 5 mg tablet 10 mg PO DAILY phentermine 37.5 mg tablet 37.5 mg PO DAILY Qty: 30 2RF ondansetron HCl 2 mg/mL solution 4 mg IV ONCE Qty: 2 0RF Rx Instructions: May give 2-4 mg IV as needed for nausea with Iron infusion Referrals: Nadia Brennan MD [Primary Care Provider, Family Practice] Stand Alone Forms: Patient Portal/API
[2025-06-27 15:01] LABS: Add Manual Diff / Slide Review NO; Hematocrit 44.9 % (36-46); Hemoglobin 14.5 g/dL (12.0-16.0); Lymphocytes Absolute Auto 2100 /uL (1100-4500); Mean Corpuscular HGB Conc 32.4 % (30-36); Mean Corpuscular Hemoglobin 23.1 PG (26-34); Mean Corpuscular Volume 71.2 fL (80-100); Platelet Count 366 X10^3/uL (150-400)
[2025-06-27 15:02] LABS: HEMOLYSIS < 15 (0-50)
[2025-06-27 15:08] LABS: Alanine Aminotransferase 44 IU/L (<35); Albumin 4.7 g/dL (3.5-5.0); Albumin Globulin Ratio 1.4 (1.0-2.8); Alkaline Phosphatase 65 U/L (38-126); Blood Urea Nitrogen 11 mg/dL (7-17); Calcium 9.3 mg/dL (8.4-10.2); Carbon Dioxide 24 mmol/L (22-32); Chloride 105 mmol/L (98-107); Estimated Glomerular Filt Rate > 60 mL/min (>60); Globulin 3.3 g/dL (1.7-4.1); Glucose 118 mg/dL (70-99); Lipase 83 U/L (23-300); Magnesium 2.2 mg/dL (1.6-2.3); Potassium 4.1 mmol/L (3.4-5.1); Sodium 140 mmol/L (137-145); Total Protein 8.0 g/dL (6.3-8.2)
[2025-06-27 15:15] LABS: Anisocytosis 2+; Hypochromasia 2+; Microcytosis 2+
[2025-06-27 15:19] LABS: NT-proBNP (BNP-Adult 18+) < 20 pg/mL (<125); Troponin I < 0.012 ng/mL (0.01-0.034)
--- NOTE | 2025-06-27 15:45 | DI.CT.S_ITS ---
PROCEDURE: CT ANGIO CHEST PE PROTOCOL
--- NOTE | 2025-06-27 16:47 | PC.NURSE ---
Pt noted to have IWOB ambulating to restroom. Pt states these are the symptoms that she has been dealing with since yesterday
[2025-06-27 16:54] LABS: Appearance Urine UA CLEAR; Bilirubin Urine UA NEGATIVE (NEGATIVE); Color Urine UA YELLOW; Glucose Urine UA NEGATIVE (Negative); Ketones Urine UA TRACE (NEGATIVE); Leukocyte Esterase Urine UA 1+ (NEGATIVE); Nitrite Urine UA POSITIVE (Negative); Occult Blood Urine UA 1+ (Negative); Protein Urine UA TRACE (Negative); Specific Gravity Urine UA 1.020 (1.000-1.035); Urobilinogen Urine UA 0.2 E.U./dL (0.2)
[2025-06-27 17:03] LABS: pH Urine UA 7.0 (4.5-8.0)
[2025-06-27 17:04] LABS: Culture Indicated Urine Specimen Cultured
[2025-06-27 17:24] LABS: Troponin I < 0.012 ng/mL (0.01-0.034)
[2025-06-27 17:26] VITALS: PULSE 95; RESP 37; O2SAT 99
[2025-06-27 17:30] VITALS: PULSE 91; RESP 26; O2SAT 100
[2025-06-27 17:40] VITALS: BP 135/74; PULSE 94; RESP 23; O2SAT 100
== END 2025-06-27 18:29 | disposition home or self-care (01) ==
PROVIDERS: Emergency Provider Emergency Medicine; PCP Family Medicine
DX: R07.9 Chest pain, unspecified (principal); N39.0 Urinary tract infection, site not specified; R00.0 Tachycardia, unspecified; I89.0 Lymphedema, not elsewhere classified
CPT/HCPCS: 36415; 71045; 71275; 80053; 81001; 83690; 83735; 83880; 84484; 85025; 85379; 87086; 93005; 99283; 99284; Q9967

== ENCOUNTER → 2025-08-01 14:15 | Outpatient (CLI) | payer OTHER, SELFPAY ==
[2025-08-01 16:18] LABS: Add Manual Diff / Slide Review NO; Hematocrit 47.8 % (36-46); Hemoglobin 15.5 g/dL (12.0-16.0); Lymphocytes Absolute Auto 2400 /uL (1100-4500); Mean Corpuscular HGB Conc 32.5 % (30-36); Mean Corpuscular Hemoglobin 25.4 PG (26-34); Mean Corpuscular Volume 78.0 fL (80-100); Platelet Count 355 X10^3/uL (150-400)
[2025-08-01 16:35] LABS: Hemoglobin A1C% w Est Avg Glu 5.9 % (4.0-6.0)
[2025-08-01 16:58] LABS: Iron 53 ug/dL (37-170)
[2025-08-01 17:01] LABS: Alanine Aminotransferase 31 IU/L (<35); Albumin 4.6 g/dL (3.5-5.0); Albumin Globulin Ratio 1.7 (1.0-2.8); Alkaline Phosphatase 65 U/L (38-126); Blood Urea Nitrogen 10 mg/dL (7-17); Calcium 9.8 mg/dL (8.4-10.2); Carbon Dioxide 24 mmol/L (22-32); Chloride 106 mmol/L (98-107); Estimated Glomerular Filt Rate > 60 mL/min (>60); Globulin 2.7 g/dL (1.7-4.1); Glucose 105 mg/dL (70-99); HEMOLYSIS < 15 (0-50); Potassium 4.8 mmol/L (3.4-5.1); Sodium 143 mmol/L (137-145); Total Protein 7.3 g/dL (6.3-8.2)
[2025-08-01 17:36] LABS: Ferritin 67 ng/mL (6-137)
[2025-08-01 18:07] LABS: RBC Morphology Normal Morphology
== END ==
PROVIDERS: PCP Family Medicine; Referring Provider Family Medicine; Visit Provider Family Medicine
DX: E61.1 Iron deficiency (principal); R73.03 Prediabetes; D50.0 Iron deficiency anemia secondary to blood loss (chronic)
CPT/HCPCS: 36415; 80053; 82728; 83036; 83540; 85025